=== PATIENT | male | born 1955 | race Asian ===

== ENCOUNTER 2019-10-05 11:16 | Emergency (ER) | payer MEDICARE, MEDICAID ==
[~2019-10-05] VITALS: Ht 170.2 cm; Wt 69.0 kg
[2019-10-05] MEDS ORDERED: FAMOTIDINE 20MG/2ML VIAL IV STA (12:16)
[2019-10-05] MEDS ORDERED: ONDANSETRON HCL 4MG/2ML INJ IV STA (12:16)
[2019-10-05] MEDS ORDERED: MORPHINE SULFATE 4 MG/ML CPJ (NOT FOR IM USE) IV STA (12:16)
[2019-10-05] MEDS ORDERED: SODIUM CHLORIDE 0.9% 1,000 ML IV ONE (12:16)
[2019-10-05] MEDS ORDERED: ASPIRIN 81MG TABLET PO ONE (12:30)
[2019-10-05 13:04] LABS: BASOPHILS % 0.7 % (0.0-2.0); EOSINOPHILS % 2.1 % (0.0-5.0); HEMATOCRIT. 43.9 % (42.0-52.0); HEMOGLOBIN. 14.9 g/dL (14.0-18.0); LYMPHOCYTES % 22.9 % (20.0-50.0); MEAN CORPUSCULAR HEMOGLOBIN 29.5 pg (28.0-32.0); MEAN CORPUSCULAR VOLUME 86.9 fL (80.0-94.0); MEAN PLATELET VOLUME 7.1 fl (7.4-10.4); MONOCYTES % 5.3 % (2.0-8.0); PLATELET 279 x1000/uL (130-400); RED BLOOD CELL COUNT 5.06 mill/uL (4.7-6.1); RED CELL DISTRIBUTION WIDTH 14.7 % (11.6-14.6)
[2019-10-05 13:11] LABS: CHLORIDE 109 mEq/L (98-107); PROTHROMBIN TIME 10.4 sec (9.6-11.0)
[2019-10-05 13:15] LABS: ETHANOL BLOOD < 10 mg/dL
[2019-10-05] MEDS ORDERED: POTASSIUM CHLORIDE 20MEQ TABLET SR PO ONE (13:45)
[2019-10-05 14:57] LABS: CLARITY URINE CLEAR (CLEAR); COLOR URINE YELLOW (YELLOW); KETONES URINE TRACE (NEGATIVE); LEUKOCYTE ESTERASE URINE NEGATIVE (NEGATIVE); NITRITE URINE NEGATIVE (NEGATIVE); OCCULT BLOOD URINE NEGATIVE (NEGATIVE); PROTEIN URINE 2+ (NEGATIVE); SPECIFIC GRAVITY URINE 1.016 (1.005-1.030)
[2019-10-05 15:14] LABS: *AMPHETAMINES SCREEN URINE NEGATIVE (NEGATIVE); *BENZODIAZEPINES SCREEN URINE NEGATIVE (NEGATIVE); *COCAINE SCREEN URINE NEGATIVE (NEGATIVE)
[2019-10-05 15:15] LABS: CANNABINOID URINE SCREEN NEGATIVE (NEGATIVE); METHADONE URINE SCREEN NEGATIVE (NEGATIVE); OPIATES URINE SCREEN PRESUMTIVE POSITIVE (NEGATIVE); PHENCYCLIDINE URINE SCREEN NEGATIVE (NEGATIVE)
[2019-10-05 15:16] LABS: *BARBITURATES SCREEN URINE NEGATIVE (NEGATIVE)
[2019-10-05 18:24] VITALS: BP 130/77
== END 2019-10-05 18:33 | disposition short-term general hospital (02) ==
LOC: ER 12:43 → CANBEDREQ 19:45
DX: R07.89 Other chest pain (principal); R11.2 Nausea with vomiting, unspecified; E87.8 Other disorders of electrolyte and fluid balance, not elsewhere classified; R10.9 Unspecified abdominal pain; I10 Essential (primary) hypertension
CPT/HCPCS: 36415; 71045; 80053; 80305; 80320; 81003; 83690; 83880; 84484; 85025; 85610; 93005; 96374; 96375; 99285; J2270; J2405; J3490; J7030; G0480